=== PATIENT | male | born 1985 | race Caucasian/White ===

== ENCOUNTER 2016-11-20 02:59 | Emergency (ER) | payer SELFPAY ==
[2016-11-20 03:36] LABS: %Lymphocytes 10.3 % (21.0-51.0); Hematocrit 51.7 % (42.0-52.0); Mean Platelet Volume 6.9 fL (7.4-10.4); Red Blood Cell (RBC) Count 5.28 mill/uL (4.70-6.10); White Blood Cell (WBC) Count 11.8 thou/uL (4.8-10.8)
[2016-11-20 03:37] LABS: #Basophils 0.1 thou/uL (0.0-0.2); #Eosinphils 0.1 thou/uL (0.0-0.7); #Lymphocytes 1.2 thou/uL (1.20-3.40); #Neutrophils 9.3 thou/uL (1.40-6.50); %Basophils 0.8 % (0.0-1.0); %Monocytes 8.7 % (0.0-10.0)
[2016-11-20 03:52] LABS: Acetaminophen Less than 6.0 mcg/mL (10.0-30.0); CK (CPK) 57 U/L (30-200); Salicylate Less than 8.0 mg/dL (15.0-30.0)
[2016-11-20 03:53] LABS: ALT (SGPT) 12 U/L (8-55); AST (SGOT) 14 U/L (5-34); Alkaline Phosphatase 63 U/L (40-150); Anion Gap 13 mmol/L (10-20); BUN (Urea Nitrogen) 14 mg/dL (8.9-20.6); Bilirubin, Total 0.8 mg/dL (0.2-1.2); Calc. Creatinine Clearance 0 mL/min (70-130); Calcium 9.6 mg/dL (7.8-10.44); Carbon Dioxide 26 mmol/L (22-29); Chloride 103 mmol/L (98-107); Estimated GFR-MDRD Greater than 90; Globulin 2.8 g/dL (2.4-3.5); Protein, Total 7.2 g/dL (6.0-8.3)
[2016-11-20 05:08] LABS: Bilirubin Negative (Negative); Blood, Urine Negative (Negative); Glucose, Urine (Dipstick) Negative (Negative); Ketone, Urine Trace mg/dL (Negative); Nitrite Negative (Negative); Protein, Urine (Dipstick) Negative (Neg-Trace); Urobilinogen 0.2 mg/dL (0.2-1.0)
[2016-11-20 05:41] LABS: Amphetamine Not Detected (NotDetected); Methadone Not Detected (NotDetected); Methamphetamine Not Detected (NotDetected)
== END 2016-11-20 13:19 ==
LOC: ERS 02:59
DX: R45.851 Suicidal ideations (principal); R44.0 Auditory hallucinations; J45.909 Unspecified asthma, uncomplicated; F17.210 Nicotine dependence, cigarettes, uncomplicated
CPT/HCPCS: 36415; 80053; 80306; 80307; 81003; 82550; 84443; 85025; 93005

== ENCOUNTER 2019-01-21 15:51 | Emergency (ER) | payer SELFPAY ==
[~2019-01-21 15:51] MED LIST: Iopamidol-370 76% 500 ML 1 ML ONE
--- NOTE | 2019-01-21 16:33 | RAD ---
EXAM: Single view of the chest HISTORY: Chest palpitations COMPARISON: None FINDINGS: Single view of the chest shows a normal sized cardiomediastinal silhouette. There is no zayra dence of consolidation, mass, or pleural effusion. The bones are unremarkable. IMPRESSION: No evidence of acute cardiopulmonary disease
[2019-01-21 17:08] LABS: #Eosinphils 0.1 thou/uL (0.0-0.7); #Lymphocytes 1.7 thou/uL (1.20-3.40); #Monocytes 0.7 thou/uL (0.11-0.59); #Neutrophils 6.5 thou/uL (1.40-6.50); %Basophils 0.5 % (0.0-1.0); %Eosinophils 1.1 % (0.0-10.0); %Lymphocytes 18.5 % (21.0-51.0); %Monocytes 8.2 % (0.0-10.0); %Neutrophils 71.7 % (42.0-75.0); Hemoglobin 17.2 g/dL (14.0-18.0); Mean Corpuscular HGB CONC 33.4 g/dL (32.0-36.0); Mean Corpuscular Hemoglobin 30.3 pg (27.0-31.0); Mean Platelet Volume 7.1 fL (7.4-10.4); Platelet Count 221 thou/uL (130-400); RBC Distribution Width 11.8 % (11.5-14.5); Red Blood Cell (RBC) Count 5.66 mill/uL (4.70-6.10)
[2019-01-21 17:31] LABS: ALT (SGPT) 38 U/L (8-55); AST (SGOT) 24 U/L (5-34); Albumin 4.5 g/dL (3.5-5.0); Alkaline Phosphatase 87 U/L (40-110); Anion Gap 12 mmol/L (10-20); BUN (Urea Nitrogen) 9 mg/dL (8.9-20.6); Bilirubin, Total 0.6 mg/dL (0.2-1.2); CK (CPK) 53 U/L (30-200); Calc. Creatinine Clearance 0 mL/min (70-130); Calcium 9.4 mg/dL (7.8-10.44); Carbon Dioxide 27 mmol/L (22-29); Chloride 105 mmol/L (98-107); Estimated GFR-MDRD 88; Globulin 2.4 g/dL (2.4-3.5); Glucose 98 mg/dL (70-105); Lipase 10 U/L (8-78); Potassium 4.3 mmol/L (3.5-5.1); Protein, Total 6.9 g/dL (6.0-8.3); Sodium 140 mmol/L (136-145)
--- NOTE | 2019-01-21 18:51 | CT ---
CTA OF THE CHEST AND ABDOMEN WITH CONTRAST: 01/21/19 HISTORY: Chest palpitations and chest pain with pulsating fullness. TECHNIQUE: Multiple contiguous axial images were obtained in a CTA of the chest and abdomen with contrast per ao rtic dissection protocol. 3D sagittal and coronal MIP reformats were performed. FINDINGS: The heart is normal in size without focal cardiac abnormality. No hilar or mediastinal lymphadenopath y are seen. No pneumothorax or pleural effusion are seen. No suspicious pulmonary nodules are seen. No focal infi ltrates are seen in the lungs. The liver, gallbladder, kidneys, adrenal glands, spleen, and pancreas are unremarkable. No free air, free fluid, or stranding changes are seen in the abdomen. The visualized large and small bowel are u nremarkable. The aorta is normal in caliber without evidence of dissection or aneurysmal dilatation. The celiac tr unk, SMA and CK are patent. A single renal artery is seen on each side without significant atheroscl erotic disease. There are well circumscribed masses seen along the thoracic spine bilaterally along the exiting nerve roots. The largest is seen at the T8-9 level measuring 2.7 cm in size. 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 The bones are unremarkable. IMPRESSION: 1. No evidence of aortic dissection. 2. 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 POS: [facility]
== END 2019-01-21 19:04 | disposition home or self-care (01) ==
LOC: ERS 15:51
DX: R07.9 Chest pain, unspecified (principal); J45.909 Unspecified asthma, uncomplicated; Z87.891 Personal history of nicotine dependence
CPT/HCPCS: 36415; 71045; 71275; 72191; 74175; 80053; 82550; 83690; 84484; 85025; 93005; 94760; Q9967